=== PATIENT | female | born 1975 | race Caucasian/White ===

== ENCOUNTER 2017-07-19 11:50 | Inpatient (IN) | payer OTHER ==
[~2017-07-19] VITALS: Ht 154.9 cm; Wt 56.0 kg
[2017-07-19 14:28] LABS: CALCIUM 9.1 mg/dL (8.5-10.1); CARBON DIOXIDE 27.4 mmol/L (21-32); CHLORIDE SERUM 96 mmol/L (98-107); CREATININE SERUM 0.7 mg/dL (0.6-1.0); GFR1 > 60 mL/min; GLUCOSE SERUM 333 mg/dL (74-106); POTASSIUM SERUM 3.5 mmol/L (3.5-5.1); SODIUM SERUM 136 mmol/L (136-145)
[2017-07-19 14:41] LABS: ALBUMIN 3.5 g/dL (3.4-5.0); ALKALINE PHOSPHATASE 71 U/L (46-116); ALT/SGPT 27 U/L (14-59); AST/SGOT 17 U/L (15-37); BILIRUBIN TOTAL 0.4 mg/dL (0.20-1.00)
[2017-07-19 14:42] LABS: CHOLESTEROL 239 mg/dL (<200); HDL CHOLESTEROL 68 mg/dL (40-60)
[2017-07-19 15:12] LABS: UA SPECIFIC GRAVITY 1.015 (1.005-1.035); microscopic required? YES; urine erythrocyte 1+ (NEGATIVE)
[2017-07-19] MEDS ORDERED: METFORMIN HCL1000 MG PO (15:58)
[2017-07-19] MEDS ORDERED: HUMALOG100 U/ML SC (15:59)
[2017-07-19] MEDS ORDERED: LANTI SQ (15:59)
[2017-07-19 18:00] VITALS: BP 134/84
[2017-07-19 18:02] VITALS: BP 134/84
[2017-07-19 18:27] LABS: T3 TOTAL 0.81 ng/mL
[2017-07-19 18:29] LABS: AMPHETAMINE QUAL UR NONE DETECTED (NEG <=1000)
[2017-07-19 18:29] LABS: MAGNESIUM 2.1 mg/dL (1.8-2.4); PHOSPHOROUS 2.9 mg/dL (2.5-4.9)
[2017-07-19 18:30] LABS: CHOLESTEROL/HDL RATIO 3.7
[2017-07-19 18:41] LABS: FREE T4 1.08 ng/dL (0.76-1.46); FREE THYROXINE INDEX 3.1 ug/dL (1.4-4.5); T4(THYROXINE) 9.1 ug/dL (4.7-13.3)
[2017-07-19 18:44] LABS: PLATELET COUNT 230 x10^3mcL (130-400); RED CELL DISTRIBUTION WIDTH 13.4 % (11.5-14.5)
[2017-07-19 18:45] LABS: BASOPHIL % 0 % (0-2)
[2017-07-19 21:27] VITALS: BP 131/81
[2017-07-20 06:25] VITALS: BP 123/71
[2017-07-20 06:45] LABS: CALCIUM 8.1 mg/dL (8.5-10.1); CARBON DIOXIDE 25.8 mmol/L (21-32); CHLORIDE SERUM 103 mmol/L (98-107); CREATININE SERUM 0.5 mg/dL (0.6-1.0); GFR1 > 60 mL/min; GLUCOSE SERUM 189 mg/dL (74-106); MAGNESIUM 1.9 mg/dL (1.8-2.4); PHOSPHOROUS 3.1 mg/dL (2.5-4.9); POTASSIUM SERUM 3.2 mmol/L (3.5-5.1); SODIUM SERUM 137 mmol/L (136-145)
[2017-07-20 08:12] LABS: BASOPHIL % 0.3 % (0-2); PLATELET COUNT 200 x10^3mcL (130-400); RED CELL DISTRIBUTION WIDTH 13.6 % (11.5-14.5)
[2017-07-20 10:26] VITALS: BP 124/74
[2017-07-20 14:05] VITALS: BP 113/72
[2017-07-20 17:58] VITALS: BP 117/70
[2017-07-20 20:25] VITALS: BP 124/71
[2017-07-21 02:15] VITALS: Ht 154.9 cm; Wt 56.0 kg
[2017-07-21 04:22] VITALS: BP 138/79
[2017-07-21 06:55] LABS: BASOPHIL % 0.4 % (0-2); PLATELET COUNT 179 x10^3mcL (130-400); RED CELL DISTRIBUTION WIDTH 13.7 % (11.5-14.5)
[2017-07-21 07:07] LABS: CARBON DIOXIDE 24.2 mmol/L (21-32); CHLORIDE SERUM 107 mmol/L (98-107); CREATININE SERUM 0.4 mg/dL (0.6-1.0); GFR1 > 60 mL/min; GLUCOSE SERUM 143 mg/dL (74-106); POTASSIUM SERUM 3.7 mmol/L (3.5-5.1); SODIUM SERUM 140 mmol/L (136-145)
[2017-07-21 10:09] VITALS: BP 147/84
[2017-07-21 12:56] VITALS: BP 147/84
== END 2017-07-21 14:30 | disposition home or self-care (01) | DRG 113 ==
LOC: ED 11:50 → DU 15:51 → MU 07-20 17:11
PROVIDERS: Emergency Medicine; ADMIT Family Medicine
DX: J10.1 Influenza due to other identified influenza virus with other respiratory manifestations (principal); N17.0 Acute kidney failure with tubular necrosis; E87.8 Other disorders of electrolyte and fluid balance, not elsewhere classified; E11.65 Type 2 diabetes mellitus with hyperglycemia; I10 Essential (primary) hypertension; R31.9 Hematuria, unspecified; E78.5 Hyperlipidemia, unspecified; Z68.28 Body mass index [BMI] 28.0-28.9, adult; Z98.891 History of uterine scar from previous surgery
CPT/HCPCS: 82962; 83880; 84439; 87804; 94150; J1815; J1885; J2405; J7030; J7620; P9045; Q0092

== ENCOUNTER 2018-03-13 20:36 | Emergency (ER) | payer OTHER ==
[~2018-03-13] VITALS: Ht 149.9 cm; Wt 55.8 kg
[~2018-03-13 20:36] MED LIST: HUMALOG100 U/ML SC; LANTI SQ; METFORMIN HCL1000 MG PO
[2018-03-13 23:06] VITALS: BP 148/86
== END 2018-03-13 23:06 | disposition home or self-care (01) ==
LOC: ED 20:36
DX: R51 Headache (principal); I10 Essential (primary) hypertension; E11.9 Type 2 diabetes mellitus without complications

== ENCOUNTER 2019-07-29 17:41 | Emergency (ER) | payer OTHER ==
[~2019-07-29] VITALS: Ht 144.8 cm; Wt 55.8 kg
[2019-07-29 18:04] VITALS: Ht 144.8 cm; Wt 55.8 kg
[2019-07-29 18:38] LABS: BASOPHIL % 0.3 % (0-2); PLATELET COUNT 250 x10^3mcL (130-400); RED CELL DISTRIBUTION WIDTH 13.1 % (11.5-14.5)
[2019-07-29 18:52] LABS: CARBON DIOXIDE 25.7 mmol/L (21-32); CHLORIDE SERUM 98 mmol/L (98-107); CREATININE SERUM 0.5 mg/dL (0.6-1.0); GFR1 > 60 mL/min; GLUCOSE SERUM 276 mg/dL (74-106); POTASSIUM SERUM 3.3 mmol/L (3.5-5.1); SODIUM SERUM 134 mmol/L (136-145)
[2019-07-29 18:59] LABS: ALBUMIN 3.5 g/dL (3.4-5.0); ALKALINE PHOSPHATASE 69 U/L (46-116); ALT/SGPT 21 U/L (14-59); AST/SGOT 8 U/L (15-37); BILIRUBIN TOTAL 0.28 mg/dL (0.20-1.00); LIPASE 235 IU/L (73-393); TOTAL PROTEIN, SERUM 7.8 g/dL (6.4-8.2)
[2019-07-29 20:12] VITALS: BP 164/97
== END 2019-07-29 20:12 | disposition home or self-care (01) ==
LOC: ED 17:41
PROVIDERS: Emergency Medicine
DX: M54.42 Lumbago with sciatica, left side (principal); M54.41 Lumbago with sciatica, right side; J06.9 Acute upper respiratory infection, unspecified; R51 Headache; R11.2 Nausea with vomiting, unspecified; E11.9 Type 2 diabetes mellitus without complications
CPT/HCPCS: 82962; J1885; J2405; J7030

== ENCOUNTER 2019-09-28 08:49 | Emergency (ER) | payer OTHER ==
[~2019-09-28] VITALS: Ht 152.4 cm; Wt 54.0 kg
[2019-09-28 08:50] VITALS: BP 150/101; Ht 152.4 cm; Wt 54.0 kg
== END 2019-09-28 11:38 | disposition home or self-care (01) ==
LOC: ED 08:49
DX: M54.42 Lumbago with sciatica, left side (principal); E11.9 Type 2 diabetes mellitus without complications
CPT/HCPCS: J1885